=== PATIENT | female | born 1935 | race Caucasian/White ===

== ENCOUNTER 2017-08-15 12:45 | Emergency (ER) | payer MEDICARE ==
[~2017-08-15] VITALS: Ht 160 cm; Wt 73.9 kg
[~2017-08-15 12:45] MED LIST: AMOXICILLIN500 MG PO; ARTHRITIS PAIN650 M3 PO; AUGMENTIN 875-1 EACH PO; BIOTIN1 MG PO; CALCIUM 600 +1 EACH PO; CIPROFLOXACIN250 MG PO; COUMADIN2.5 MG PO; FLAGYL250 MG PO; FLONASE2 SPRAY; FUROSEMIDE20 MG PO; KEFLEX500 MG PO; MAG-OXIDE400 MG PO; NORCO 5-325 TA1 EACH PO; PREMARIN0.625 MG PO; PREVACID30 MG PO; SPIRONOLACTONE50 MG PO; VITAMIN D31000 UNI1 PO; WARFARIN SODIUM5 MG PO; ZYRTEC10 MG PO
[2017-08-15] MEDS ORDERED: MACROBID 100 M100 MG PO (14:04)
== END 2017-08-15 14:18 | disposition home or self-care (01) ==
LOC: ED 12:45
DX: N30.91 Cystitis, unspecified with hematuria (principal); I48.91 Unspecified atrial fibrillation; Z91.041 Radiographic dye allergy status; Z88.2 Allergy status to sulfonamides; Z88.6 Allergy status to analgesic agent; Z88.8 Allergy status to other drugs, medicaments and biological substances; Z91.09 Other allergy status, other than to drugs and biological substances; Z79.899 Other long term (current) drug therapy; Z79.01 Long term (current) use of anticoagulants
CPT/HCPCS: 36415; 81001; 85025; 85610; 87088; 99283

== ENCOUNTER 2017-09-08 17:55 | Emergency (ER) | payer MEDICARE ==
[~2017-09-08] VITALS: Ht 160 cm; Wt 75.8 kg
[~2017-09-08 17:55] MED LIST changes: +MACROBID 100 M100 MG PO
[2017-09-08] MEDS ORDERED: MACROBID 100 M100 MG PO (19:49)
== END 2017-09-08 20:04 | disposition home or self-care (01) ==
LOC: ED 17:55
DX: R31.9 Hematuria, unspecified (principal); R39.89 Other symptoms and signs involving the genitourinary system; Z91.041 Radiographic dye allergy status; Z88.2 Allergy status to sulfonamides; Z88.6 Allergy status to analgesic agent; Z88.8 Allergy status to other drugs, medicaments and biological substances; Z79.01 Long term (current) use of anticoagulants; Z79.899 Other long term (current) drug therapy
CPT/HCPCS: 36415; 81001; 85610; 99283

== ENCOUNTER 2018-07-09 05:05 | Emergency (ER) | payer MEDICARE ==
[~2018-07-09] VITALS: Ht 160 cm; Wt 75.8 kg
--- OUTSIDE RECORDS SUMMARY | ~2018-07-09 | XMS | Encounter Summary ---
Demographics + + + | Address | [address] | | | [place] [address] | + + + | Home Phone | | + + + | Preferred Language | Unknown | + + + | Marital Status | | + + + | Gnosticist Affiliation | 1077 | + + + | Race | Unknown | + + + | Ethnic Group | Unknown | + + + Author + + + | Author | [facility] | + + + | Organization | [facility] | + + + | Address | Unknown | + + + | Phone | Unavailable | + + + Support + + +---------+ + | Name | Relationship | Address | Phone | + + +---------+ + | Anson Johnson | ECON | Unknown | | + + +---------+ + | Monae Barrett | ECON | Unknown | | + + +---------+ + | Karin Mckeon | ECON | Unknown | | + + +---------+ + Care Team Providers + +------+ + | Care Fabric Normalizer Name | Role | Phone | + +------+ + | Tay Sims MD | PCP | | + +------+ + Reason for Visit + + + | Reason | Comments | + + + | Pacemaker Check | remote | + + + Encounter Details +--------+ + + + + | Date | Type | Department | Care Team | Description | +--------+ + + + + | 06/10/ | Documentati | [facility] | Isha Fontanez | Pacemaker Check | | 2019 | on Only | Card[facility] [place] | | (remote) | | | | [address] | | | | | | [facility] [place] | | | | | | [address] | | | | | | [phone] | | | +--------+ + + + + Social History + +-------+ +--------+------+ | Tobacco Use | Types | Packs/Day | Years | Date | | | | | Used | | + +-------+ +--------+------+ | Never Smoker | | | | | + +-------+ +--------+------+ + +---+---+---+ | Smokeless Tobacco: | | | | | Never Used | | | | + +---+---+---+ + + +---------+ + | Alcohol Use | Drinks/We | oz/Week | Comments | | | ek | | | + + +---------+ + | No | | | | + + +---------+ + + + + | Sex Assigned at | Date Recorded | | | | + + + | Not on file | | + + + as of this encounter Progress Notes Isha Fontanez - 06/10/2018 11:45 AM PDTFormatting of this note may be different from jayesh hinson. PACEMAKER REMOTE INTERROGATION REPORT Name: Morena Johnson PCP: TAY SIMS : 1935 Primary cardiology provider: Jaimie Arora Primary electrophysiology provider: Néstor Device dialysis registered nurse: Medtronic Device type: Dual chamber Battery Longevity: 8 yrs RA Pacin.1% RV Pacing: <0.1% INTERROGATION RESULTS: Please see the full interrogation report attached Known history of atrial flutter or atrial fibrillation: Yes Current antithrombotic therapy including: warfarin Mode switches: 4 AT/AF <1 min , no egms. Ventricular high rate episodes: None. Lead function: Lead impedance and threshold value trends have been reviewed and are accepta ble based on most recent evaluation Follow up: The next scheduled interrogation will be in 3 months in the cardiac device clini c. Additional comments: None. IMPRESSION: 1. Normal pacemaker function. 2. No atrial fibrillation/flutter noted. 3. No ventricular high rate episodes were noted. Testing reviewed by: Isha Fontanez [facility] Cardiology in this encounter Plan of Treatment +--------+---------+ + + + | Date | Type | Specialty | Care Team | Description | +--------+---------+ + + + | 01/20/ | Office | Cardiology | Jaimie Arora, | | | 2018 | Visit | | MD Kian Hanna | | | | | | Dr Salcido, | | | | | | [place] [address] | | | | | | [phone] | | | | | | | | +--------+---------+ + + + as of this encounter Visit Diagnoses + + | Diagnosis | + + | Dyspnea on exertion - Primary | + + | Other dyspnea and respiratory abnormality | + +"
--- OUTSIDE RECORDS SUMMARY | ~2018-07-09 | XMS | Clinical Summary ---
Demographics + + + | Address | [address] | | | [place] [address] | + + + | Home Phone | | + + + | Preferred Language | Unknown | + + + | Marital Status | | + + + | Hoahaoism Affiliation | Unknown | + + + | Race | White | + + + | Ethnic Group | Not or | + + + Author + + + | Organization | Unknown | + + + | Address | Unknown | + + + | Phone | Unavailable | + + + Support + + + + + | Name | Relationship | Address | Phone | + + + + + | DAQUAN FALCON | ECON | [place] | | + + + + + Care Team Providers + +------+ + | Care Physical Therapy Teacher Name | Role | Phone | + +------+ + PP | Unavailable | + +------+ + Source Comments ISMAEL is fully live on both [facility] and [facility] InPatient.[facility] Allergies Not on File Current Medications Not on file Active Problems Not on file Social History + +-------+ +--------+------+ | Tobacco Use | Types | Packs/Day | Years | Date | | | | | Used | | + +-------+ +--------+------+ | Never Assessed | | | | | + +-------+ +--------+------+ + + + | Sex Assigned at | Date Recorded | | | | + + + | Not on file | | + + + Plan of Treatment + + + + + | Health Maintenance | Due Date | Last Done | Comments | + + + + + | Pneumococcal (Adult) | | | | | (1 of 2 - PCV13) | 3 | | | + + + + + | Influenza (Flu) | | | | | vaccination (#1) | 8 | | | + + + + + Results Not on filefrom Last 3 Months"
--- OUTSIDE RECORDS SUMMARY | ~2018-07-09 | XMS | Clinical Summary ---
Demographics + + + | Address | [address] | | | [place] [address] | + + + | Home Phone | | + + + | Preferred Language | Unknown | + + + | Marital Status | | + + + | Confucianist Affiliation | Unknown | + + + [...] Team Providers + +------+ + | Care Clinical Data Analyst Name | Role | Phone | + +------+ + PP | Unavailable | + +------+ + Source Comments ISMAEL is fully live on both [facility] Ambulatory and [facility] InPatient.[facility] Allergies Not on File Current [...]
--- OUTSIDE RECORDS SUMMARY | ~2018-07-09 | XMS | Clinical Summary ---
Demographics + + + | Address | [address] | | | [place] [address] | + + + | Home Phone | | + + + | Preferred Language | Unknown | + + + | Marital Status | | + + + | Scientology Affiliation | 1077 | + + + | Race | Unknown | + + + | Ethnic Group | Unknown | + + + Author + + + | Author | [facility] | + + + | Organization | [facility] | + + + | Address [...] + + +---------+ + | Karin Mckeon ECON | Unknown | | + + +---------+ + Care Team Providers + +------+ + | Care Fur Plucker Name | Role | Phone | + +------+ + | Tay Ordonez MD | PP | | + +------+ + Allergies + + + + + + | Active Allergy | Reactions | Severity | Noted | Comments | | | | | Date | | + + + + + + | Aspirin | Other (See Comments) | Medium | 08/15/19 | Blood disorder | | | | | 17 | | + + + + + + | Meperidine | Other (See Comments) | Medium | 08/15/19 | Anemia | | | | | 17 | | + + + + + + | Iodinated Diagnostic | Other (See Comments) | Medium | 08/15/19 | Anemia | | Agents | | | 17 | | + + + + + + | Cephalexin | Other (See Comments) | Medium | 08/15/19 | Does not remember | | | | | 17 | | + + + + + + | Sulfa Antibiotics | Other (See Comments) | Medium | 08/15/19 | Blood disorder | | | | | 17 | | + + + + + + Current Medications + + +-------+---------+------+------+-------+ | Prescription | Sig. | Disp. | Refills | Star | End | Statu | | | | | | t | Date | s | | | | | | Date | | | + + +-------+---------+------+------+-------+ | furosemide (LASIX) | Take 20 mg by mouth | | | | | Activ | | 20 MG tablet | daily. | | | | | e | + + +-------+---------+------+------+-------+ | spironolactone | Take 50 mg by mouth | | | | | Activ | | (ALDACTONE) 50 MG | daily. | | | | | e | | tablet | | | | | | | + + +-------+---------+------+------+-------+ | omeprazole | Take 20 mg by mouth | | | | | Activ | | (PRILOSEC) 20 MG | daily. | | | | | e | | capsule | | | | | | | + + +-------+---------+------+------+-------+ | loratadine | Take 10 mg by mouth | | | | | Activ | | (CLARITIN) 10 MG | as needed. | | | | | e | | tablet | | | | | | | + + +-------+---------+------+------+-------+ | warfarin | Take 5 mg by mouth | | | | | Activ | | (COUMADIN) 5 MG | daily. | | | | | e | | tabletIndications: | | | | | | | | believes the last | | | | | | | | time she had her INR | | | | | | | | checked was in [place] | | | | | | | | 2018 | | | | | | | + + +-------+---------+------+------+-------+ | acetaminophen | Take 1,000 mg by | | | | | Activ | | (TYLENOL) 500 MG | mouth nightly. | | | | | e | | tablet | | | | | | | + + +-------+---------+------+------+-------+ | estrogens, | Take 0.625 mg by | | | | | Activ | | conjugated, | mouth daily. | | | | | e | | (PREMARIN) 0.625 MG | | | | | | | | tablet | | | | | | | + + +-------+---------+------+------+-------+ | | Take 5 mLs by mouth | | | | | Activ | | Promethazine-Phenyle | every 4 (four) hours | | | | | e | | ph-Codeine | as needed. | | | | | | | (PROMETHAZINE | | | | | | | | VC/CODEINE) | | | | | | | | 6.25-5-10 MG/5ML | | | | | | | | SYRP | | | | | | | + + +-------+---------+------+------+-------+ | [place]-3 Fatty | Take 1,250 mg by | | | | | Activ | | Acids (PRO NUTRIENTS | mouth daily. | | | | | e | | OMEGA 3 PO) | | | | | | | + + +-------+---------+------+------+-------+ | Magnesium 250 MG | Take 250 mg by mouth | | | | | Activ | | TABS tablet | daily. | | | | | e | + + +-------+---------+------+------+-------+ | fluticasone | 1 spray by Each Nare | | | | | Activ | | (FLONASE) 50 MCG/ACT | route as needed for | | | | | e | | nasal | Rhinitis. | | | | | | + + +-------+---------+------+------+-------+ | ranitidine | Take 75 mg by mouth | | | | | Activ | | (ZANTAC) 75 MG | daily. | | | | | e | | tablet | | | | | | | + + +-------+---------+------+------+-------+ | Wheat Dextrin | Take by mouth. | | | | | Activ | | (BENEFIBER DRINK MIX | | | | | | e | | PO) | | | | | | | + + +-------+---------+------+------+-------+ | DONEPEZIL HCL PO | Take 1 tablet by | | | | | Activ | | | mouth daily. | | | | | e | + + +-------+---------+------+------+-------+ | Multiple | Take 1 tablet by | | | | | Activ | | Minerals-Vitamins | mouth daily. | | | | | e | | (CALCIUM CITRATE | | | | | | | | PLUS/MAGNESIUM PO) | | | | | | | + + +-------+---------+------+------+-------+ | Probiotic Product | Take 2 capsules by | | | | | Activ | | (PROBIOTIC PO) | mouth daily. | | | | | e | + + +-------+---------+------+------+-------+ | Ascorbic Acid 500 | Take by mouth. | | | | | Activ | | MG CAPS | | | | | | e | + + +-------+---------+------+------+-------+ | famotidine | Take 20 mg by mouth | | | | | Activ | | (PEPCID) 20 MG | 2 (two) times daily | | | | | e | | tablet | as needed. | | | | | | + + +-------+---------+------+------+-------+ Active Problems + + + | Problem | Noted Date | + + + | Essential hypertension | 08/28/2016 | + + + | S/P ablation of atrial fibrillation | 08/14/2016 | + + + + + | Overview: 2006 | + + + + + | S/P cardiac pacemaker procedure | 08/14/2016 | + + + Encounters +--------+ + + + + | Date | Type | Specialty | Care Team | Description | +--------+ + + + + | 06/10/ | Documentati | | Isha Fontanez | Pacemaker Check | | 2019 | on Only | | | (remote) | +--------+ + + + + from Last 3 Months Family History + +------+ + + | Relation | Name | Status | Comments | + +------+ + + | Father | | | MS | | | | (Age | | | | | 70) | | + +------+ + + | Mother | | | | | | | (Age | | | | | 93) | | + +------+ + + Social History + +-------+ +--------+------+ [...] on file | | + + + Last Filed Vital Signs + + + + | Vital Sign | Reading | Time Taken | + + + + | Blood Pressure | 118/76 | 01/14/2018 10:57 AM PDT | + + + + | Pulse | 74 | 01/14/2018 10:57 AM PDT | + + + + | Temperature | 36.4 C (97.6 F) | 08/22/2016 3:26 PM PDT | + + + + | Respiratory Rate | 21 | 08/22/2016 3:26 PM PDT | + + + + | Oxygen Saturation | 97% | 01/14/2018 10:57 AM PDT | + + + + | Inhaled Oxygen | - | - | | Concentration | | | + + + + | Weight | 78.7 kg (173 lb 8 | 01/14/2018 10:57 AM PDT | | | oz) | | + + + + | Height | 162.6 cm (5' 4") | 01/14/2018 10:57 AM PDT | + + + + | Body Mass Index | 29.78 | 01/14/2018 10:57 AM PDT | + + + + Plan of Treatment +--------+---------+ + + + | Date | Type | Specialty | Care Team | Description | +--------+---------+ + + + | 01/20/ | Office | | Jaimie Arora, | | | 2019 | Visit | | MD Kian Hanna | | | | | | Dr Salcido, | | | | | | [place] [address] | | | | | | [phone] | | | | | | | | +--------+---------+ + + + + + + + + | Health Maintenance | Due Date | Last Done | Comments | + + + + + | Vaccine: | | | | | Dtap/Tdap/Td (1 - | 7 | | | | Tdap) | | | | + + + + + | Vaccine: Zoster (1 | | | | | of 2) | 8 | | | + + + + + | DEXA SCAN SCREENING | | | | | | 3 | | | + + + + + | Vaccine: | | | | | Pneumococcal 65+ | 3 | | | | Low/Medium Risk (1 | | | | | of 2 - PCV13) | | | | + + + + + | Vaccine: Influenza | | | | | (Season Ended) | 9 | | | + + + + + Implants + +--------+--------+ +--------+--------+--------+ | Implanted | Type | Area | Manufacture | Device | Expira | Model | | | | | r | | tion | / | | | | | | Identi | Date | Serial | | | | | | fier | | / Lot | + +--------+--------+ +--------+--------+--------+ | Estee Willis | Pacema | Left: | MEDTRONIC - | | 12/19/ | [id number] | | Mri-08/22/2016Implanted: Qty: 1 | ker | Chest | MEDT | | 2018 | | | on 08/22/2016 by Ulysses | | Sheryl | | | | /[id number] | | MD Jaimie | | | | | | [id number] | | | | | | | | / | + +--------+--------+ +--------+--------+--------+ Results Not on filefrom Last 3 Months Insurance + +--------+ +------+-------+ + | Payer | Benefi | Subscriber | Type | Phone | Address | | | t Plan | ID | | | | | | / | | | | | | | Group | | | | | + +--------+ +------+-------+ + | MEDICARE | MEDICA | [id number] | | | [address] | | | RE | | | | [place] [address] | | | IP-OP | | | | | + +--------+ +------+-------+ + | UNITED HEALTHCARE | UNITED | [id number] | | | | | | | | | | | | | HEALTH | | | | | | | CARE - | | | | | | | AARP | | | | | + +--------+ +------+-------+ + + +--------+ +--------+ + + | Guarantor Name | Accoun | Relation to | Date | Phone | Billing Address | | | t Type | Patient | of | | | | | | | | | | + +--------+ +--------+ + + | CHUCK JOHNSON | Person | Self [birth year] Home: | [address] | | | al/Fam | | 1936 | [phone] | [facility] | | | deonna | | | [phone] | [place] [address] | + +--------+ +--------+ + +
--- OUTSIDE RECORDS SUMMARY | ~2018-07-09 | XMS | Clinical Summary ---
Demographics + + + | Address | [address] | | | [place] [address] | + + + | Home Phone | | + + + | Preferred Language | Unknown | + + + | Marital Status | | + + + | Congregational Affiliation | 1077 | + + + | Race | Unknown | + + + | Ethnic Group | Unknown | + + + Author + + + | Author | [facility] | | | and [place] | + + + | Organization | [facility] | | | and [place] | + + + | Address | Unknown | + + + | Phone | Unavailable | + + + Support + + +---------+ + | Name | Relationship | Address | Phone | + + +---------+ + | Anson Johnson | ECON | Unknown | | + + +---------+ + | Monae Barrett | ECON | Unknown | Unavailable | + + +---------+ + Care Team Providers + +------+ + | Care Flatwork Finisher Hand Name | Role | Phone | + +------+ + PP | Unavailable | + +------+ + Allergies Not on File Medications Not on file Active Problems Not [...] on file | | + + + + + + + | Job Start Date | Occupation | Industry | + + + + | Not on file | Not on file | Not on file | + + + + + + + + | Travel History | Travel Start | Travel End | + + + + + + | No recent travel history available. | + + Plan of Treatment + + [...]
--- OUTSIDE RECORDS SUMMARY | ~2018-07-09 | XMS | Encounter Summary ---
Demographics + + + | Address | [address] | | | [place] [address] | + + + | Home Phone | | + + + | Preferred Language | Unknown | + + + | Marital Status | | + + + | Buddhism Affiliation | 1077 | + + + | Race | Unknown | + + + | Ethnic Group | Unknown | + + + Author + + + | Author | [facility] [employer] [facility] | + + + | Organization | [facility] [employer] [facility] | + + + | Address [...] Team Providers + +------+ + | Care Diversity Specialist Name | Role | Phone | + [...] + | 06/10/ | Documentati | ANNAMARIE [facility] | Isha Fontanez | Pacemaker Check | | 2019 | on Only | Cardiology [place] | | (remote) | | | | [address] | | | | | | [facility] [place] | | | | | | [address] | | | | | | [phone] | | | +--------+ + + + [...] Jaimie Arora Primary electrophysiology provider: Néstor Device machine filler servicer: Medtronic Device type: Dual chamber Battery Longevity: [...] were noted. Testing reviewed by: Isha Fontanez [facility] Cardiology in this encounter Plan [...] | | | | | | [place] [address] | | | | | | [phone] | | | | | | | | +--------+---------+ + + + as of this encounter Visit Diagnoses + + | Diagnosis | + + | Dyspnea on exertion - Primary | + + | Other dyspnea and respiratory abnormality | + +"
--- OUTSIDE RECORDS SUMMARY | ~2018-07-09 | XMS | Clinical Summary ---
Demographics + + + | Address | [address] | | | [place] [address] | + + + | Home Phone | | + + + | Preferred Language | Unknown | + + + | Marital Status | | + + + | Hindu Affiliation | 1077 | + + + | Race | Unknown | + + + | Ethnic Group | Unknown | + + + Author + + + | Author | [facility] | + + + | Organization | [facility] | + + + | Address [...] Team Providers + +------+ + | Care Golf Club Maker Name | Role | Phone | + [...] | | | + + +-------+---------+------+------+-------+ | [place]-3 Fatty | Take 1,250 mg by | [...] | | | | | | [place] [address] | | | | | | [phone] | | | | | | | [...] +------+-------+ + | MEDICARE | MEDICA | [id number] | | | [address] | | | RE | | | | [place] [address] | | | IP-OP | | | | | + +--------+ +------+-------+ + | UNITED HEALTHCARE | UNITED | [id number] | | | | | | | [...] | Self [birth year] | Home: | [address] | | | al/Fam | | 1936 | [phone] | [facility] | | | deonna | | | [phone] | [place] [address] | + +--------+ +--------+ + +
--- OUTSIDE RECORDS SUMMARY | ~2018-07-09 | XMS | Clinical Summary ---
Demographics + + + | Address | [address] | | | [place] [address] | + + + | Home Phone | | + + + | Preferred Language | Unknown | + + + | Marital Status | | + + + | Roman Catholic Affiliation | 1077 | + + + | Race | Unknown | + + + | Ethnic Group | Unknown | + + + Author + + + | Author | [facility] | | | and [place] | + + + | Organization | [facility] | | | and [...] Team Providers + +------+ + | Care Flight Teacher Name | Role | Phone | [...]
[2018-07-09] MEDS ORDERED: PYRIDIUM200 MG PO (06:11)
[2018-07-09] MEDS ORDERED: MACROBID 100 M100 MG PO (06:11)
== END 2018-07-09 06:29 | disposition home or self-care (01) ==
LOC: ED 05:05
DX: N39.0 Urinary tract infection, site not specified (principal); I48.91 Unspecified atrial fibrillation; Z95.0 Presence of cardiac pacemaker; Z90.710 Acquired absence of both cervix and uterus; Z90.49 Acquired absence of other specified parts of digestive tract; Z91.041 Radiographic dye allergy status; Z88.2 Allergy status to sulfonamides; Z88.5 Allergy status to narcotic agent; Z91.048 Other nonmedicinal substance allergy status; Z88.1 Allergy status to other antibiotic agents; Z88.8 Allergy status to other drugs, medicaments and biological substances; Z79.01 Long term (current) use of anticoagulants; Z79.899 Other long term (current) drug therapy
CPT/HCPCS: 81001; 87077; 87088; 87186; 99283

== ENCOUNTER 2021-05-01 13:21 | Inpatient (IN) | payer MEDICARE ==
[~2021-05-01] VITALS: Ht 160 cm; Wt 82.5 kg
[~2021-05-01 13:21] MED LIST changes: +ALENDRONATE SOD70 MG PO; +ALLOPURINOL100 MG PO; -ARTHRITIS PAIN650 M3 PO; +PYRIDIUM200 MG PO; +TYLENOL EXTRA500 MG PO
[2021-05-01] MEDS ORDERED: CALCIUM MAGNES1 EAC1 PO (13:48)
[2021-05-01] MEDS ORDERED: VITAMIN C1000 MG PO (13:50)
[2021-05-01] MEDS ORDERED: OMEGA 3 FISH O1 EACH PO (13:50)
[2021-05-01] MEDS ORDERED: CRANBERRY250 MG PO (13:51)
[2021-05-01] MEDS ORDERED: ZINC 15 MG LOZE15 MG PO (13:52)
[2021-05-01] MEDS ORDERED: CITRUCEL500 MG PO (13:54)
--- NOTE | 2021-05-01 17:45 | NUR ---
PATIENT ARRIVED IN THE ROOM #114 ON A STRETCHER WITH HER DAUGHTER AND NURSING BEAN VINER. PATIENT IN COVID ISOLATION. PATIENT UP TO THE BED SIDE COMMODE AND VOIDED AND NOW IN BED ON ROOM AIR WITH O2 SATS=98%. IN THE ROOM NOW TALKING TI THE PATIENT. PATIENT GOT TO THE ROOM AT 1730.
--- NOTE | 2021-05-01 19:31 | NUR ---
RECEIVED REPORT, PT IS AWAKE IN BED, DAUGHTER IS WITH HER IN THE ROOM. CALL LIGHT IS CLOSE.
--- NOTE | 2021-05-01 20:34 | NUR ---
TALKED WITH DR HENAO ABOUT PT'S URINARY BURNING. NEW ORDERS RECEIVED FOR PYRIDIUM BIBP. NO FURTHER ORDERS RECEIVED.
--- NOTE | 2021-05-01 21:04 | EKG ---
[facility] [address] [place], [place] [address] Signed Sinus rhythm with premature ventricular complexes or fusion complexes Incomplete right bundle branch block ST \T\ T wave abnormality, consider inferior ischemia ST \T\ T wave abnormality, consider anterolateral ischemia Abnormal ECG No previous ECGs available Confirmed by SOUMYA HENAO DO ([id number]) on 05/01/2021 9:04:00 PM Electronically Signed By: SOUMYA HENAO DO 05/01/21 2104 PATIENT NAME: EZEKIELCHUCK Electrocardiogram DATE OF : 39 PHYSICIAN: SOUMYA HENAO DO REPORT #: [id number] REPORT IS CONFIDENTIAL AND NOT TO BE RELEASED WITHOUT AUTHORIZATION
--- NOTE | 2021-05-01 22:36 | NUR ---
IN ROOM TO ASSESS PT AND ADMINISTER MEDICATIONS. PT IS ORIENTED TO SELF/DAUGHTER AND SHE ADMITS SHE IS FORGETING ALOT. DAUGHTER AT BEDSIDE AND IS HER CAREGIVER. SHE HAS ASSISTED HER TO THE RESTROOM MULTIPLE TIMES TONIGHT. PT REPORTS BURNING WITH URINATION HAS DECREASED AND DENIED TAKING THE PYRIDIUM AT THIS TIME. PT AGREED TO TAKE THE MELATONIN. LR IS INFUSING PER ORDERS AND PT DENIES FURTHER NEEDS AT THIS TIME. CALL LIGHT IS CLOSE AND DAUGHTER IS IN THE ROOM.
--- NOTE | 2021-05-02 00:19 | NUR ---
PT IS RESTING WITH EYES CLOSED, RR IS EVEN AND UNLABORED. CALL LIGHT IS CLOSE. DAUGHTER IS IN THE ROOM AND IV IS INFUSING FINE.
--- NOTE | 2021-05-02 01:51 | NUR ---
PT IS RESTING WITH EYES CLOSED, RR IS EVEN AND UNLABORED. IV IS INFUSING FINE AND DAUGHTER IS AT BEDSIDE.
--- NOTE | 2021-05-02 02:30 | NUR ---
V/S AND I&O'S TAKEN AND RECORDED. ANSWERED CALL LIGHTS.
--- NOTE | 2021-05-02 04:05 | NUR ---
IN ROOM TO ADMINISTER IV ABX. PT AND DAUGHTER DENY NEEDS AT THIS TIME. CALL LIGHT IS CLOSE.
--- NOTE | 2021-05-02 06:25 | NUR ---
PT IS RESTING WITH EYES CLOSED, RR IS EVEN AND UNLABORED. CALL LIGHT IS CLOSE AND IV IS INFUSING FINE. DAUGHTER IN ROOM.
--- NOTE | 2021-05-02 07:15 | NUR ---
report recieved from night auditor rn, pt awake and alert, on room air, daughter at bedside no needs the moment
--- NOTE | 2021-05-02 12:12 | NUR ---
LUNCH TRAY DELIVERED TO PT GUEST TRAY ORDERED FOR DAUGHTER AT BEDSIDE. SITTING IN BED DENIES ANY NEEDS AT THE MOMENT
--- NOTE | 2021-05-02 12:34 | NUR ---
RN IN ROOM TO SALINE LOCK IV FLUIDS PER PROVIDER ORDER
--- NOTE | 2021-05-02 13:35 | NUR ---
rn in room to answer call light pt requesting fresh water, vital signs done i&os denies any other needs at the moment
--- NOTE | 2021-05-02 15:00 | NUR ---
Spoke with Maryanne from PT and she feels pt will require a walker for safety. Will notify Dr. Corley.
--- NOTE | 2021-05-02 16:09 | NUR ---
RN IN ROOM TO HANG IV ABX PT RESTING IN BED DENIES ANY NEEDS AT THE MOMENT
--- NOTE | 2021-05-02 16:17 | NUR ---
Spoke with pt and her daughter. Pt pleasant, but very poor memory. Daughter gently corrects her. Pt lives with her spouse and daughter spends the day with the daily. Daughter does house hold task, cooking, cleaning, and shopping. Daughter feels pt will need a higher toilet as she is having trouble getting up from toilet. We discussed commode over toilet and pt has been weak and unsteady on her feet at time. PT will assess for walker needs. Daughter and pt deny other concerns. Pt will dc to home when cleared medically.
--- NOTE | 2021-05-02 17:18 | NUR ---
rn in room to answer bed, assisted up to the bathroom, dinner tray delivered, no other needs at the moment
--- NOTE | 2021-05-02 18:40 | NUR ---
RN IN ROOM TO DO i&O, PT ASSISTED BACK TO BED , NO OTHER NEEDS AT THE MOMENT
--- NOTE | 2021-05-02 19:03 | NUR ---
RECEIVED REPORT, PT IS AWAKE IN BED WITH DAUGHTER IN THE ROOM. THEY DENY NEEDS AT THIS TIME. CALL LIGHT IS CLOSE.
--- NOTE | 2021-05-02 20:49 | NUR ---
DAUGHTER CALLED AND PT STATES THAT HER BACK IS ITCHY. PT DENIES OTHER SX, PROVIDED LOTION FOR BACK AT THIS TIME. PT DENIES FURTHER NEEDS. CALL LIGHT IS CLOSE.
--- NOTE | 2021-05-02 22:44 | NUR ---
IN ROOM TO ASSESS PT AND ADMINISTER MEDICATIONS. ADMINISTERED TYLENOL FOR GENERALIZED PAIN, DAUGHTER REPORTS PT TAKES TYLENOL AT BED. ALSO ADMINISTERED MELATONIN. PT DENIES FURTHER NEEDS. CALL LIGHT IS CLOSE AND DAUGHTER IS IN THE ROOM.
--- NOTE | 2021-05-03 00:18 | NUR ---
IV ABX COMPLETE AND LINE FLUSHED. PT'S IV IS NOW SL. PT AND DAUGHTER DENY NEEDS. CALL LIGHT IS CLOSE.
--- NOTE | 2021-05-03 01:54 | NUR ---
PT IS RESTING WITH EYES CLOSED, RR IS EVEN AND UNLABORED. CALL LIGHT IS CLOSE ABD DAUGHTER AT BEDSIDE.
--- NOTE | 2021-05-03 05:18 | NUR ---
IN ROOM TO ADMINISTER IV ABX. IV FLUSHES FINE AND IS NOW INFUSING. PT DENIES PAIN AND SOB AT THIS TIME. VS WNL AND I&O'S ENTERED. PT DENIES NEEDS AT THIS TIME. DAUGHTER IS IN ROOM AND CALL LIGHT IS CLOSE.
--- NOTE | 2021-05-03 07:15 | NUR ---
report recieved from night custodian RN pt resting in bed, daughter at bedside call light within reach, no needs at the moment
--- NOTE | 2021-05-03 09:00 | NUR ---
RN IN ROOM TO DO MORNING ASSESSMENT, PT AWAKE AND ALERT, DENIES ANY PAIN, IV FLUSHED , DAUGHTER AT BEDSIDE, VOIDING QS, NO OTHER NEEDS THE MOMENT
--- NOTE | 2021-05-03 10:00 | NUR ---
Received RX for Walker from Dr. Corley. Faxed FAce sheet, H&P, Progress notes, RX to Jannette at [facility] per pts choice.
--- NOTE | 2021-05-03 10:20 | NUR ---
RN IN ROOM TO HANG IV ABX, DENIES ANY NEEDS A THE MOMENT
--- NOTE | 2021-05-03 11:21 | NUR ---
Faxed FAce sheet, REferral for OP therapy, H&P, Progress notes, PT/OT notes to [facility].
--- NOTE | 2021-05-03 11:30 | NUR ---
Updated pt and daughter walker has been ordered and will be delivered today or tomorrow by Mary. Orders have been faxed to [facility]. Daughter denies further needs or questions.
--- NOTE | 2021-05-03 12:15 | NUR ---
RN IN ROOM TO ROUND DELIVER LUNCH TRAY, DENIES ANY OTHER NEEDS AT THE MOMENT, DAUGHTER AT BEDSIDE HELPING SET UP
[2021-05-03] MEDS ORDERED: AUGMENTIN 875-1 EACH PO (13:39)
--- NOTE | 2021-05-03 14:21 | NUR ---
MED REC COMPLETE
== END 2021-05-03 15:00 | disposition home or self-care (01) | DRG 871 ==
LOC: ED 13:21 → MS 15:47
PROVIDERS: ADMIT Student in an Organized Health Care Education/Training Program; ATTEND Student in an Organized Health Care Education/Training Program
PROC: 8E0ZXY6 Isolation (ICD-10-PCS; principal; 2021-05-01)
DX: A41.9 Sepsis, unspecified organism (principal); U07.1 COVID-19; N39.0 Urinary tract infection, site not specified; E87.2 Acidosis; R65.20 Severe sepsis without septic shock; I11.0 Hypertensive heart disease with heart failure; I50.9 Heart failure, unspecified; I48.91 Unspecified atrial fibrillation; G30.9 Alzheimer's disease, unspecified; F02.80 Dementia in other diseases classified elsewhere, unspecified severity, without behavioral disturbance, psychotic disturbance, mood disturbance, and anxiety; Z88.2 Allergy status to sulfonamides; Z91.041 Radiographic dye allergy status; Z88.6 Allergy status to analgesic agent; Z88.8 Allergy status to other drugs, medicaments and biological substances; Z79.01 Long term (current) use of anticoagulants; Z79.899 Other long term (current) drug therapy; Z87.19 Personal history of other diseases of the digestive system; Z95.0 Presence of cardiac pacemaker; Z90.710 Acquired absence of both cervix and uterus; Z98.51 Tubal ligation status; Z90.89 Acquired absence of other organs; Z98.890 Other specified postprocedural states
CPT/HCPCS: 36415; 71045; 80048; 80053; 81001; 83605; 83735; 83880; 84484; 85025; 85610; 87088; 93005; 93010; 97110; 97116; 97162; 97165; A9270; C9803; J0295; J7030; J7121; U0003

== ENCOUNTER 2025-01-09 02:09 | Emergency (ER) | payer MEDICARE ==
[~2025-01-09] VITALS: Ht 160 cm; Wt 79.6 kg
[~2025-01-09 02:09] MED LIST changes: +CALCIUM MAGNES1 EAC1 PO; +CITRUCEL500 MG PO; +CRANBERRY250 MG PO; +ESTRADIOL42.5 GM PV; -MAG-OXIDE400 MG PO; +MAGNESIUM 300300 MG PO; +OMEGA 3 FISH O1 EACH PO; +PENICILLIN V P500 MG PO; +SPIRONOLACTONE25 MG PO; +TAMSULOSIN HCL0.4 MG PO; +TURMERIC500 M2 PO; +VITAMIN C500 M1 PO; +ZINC 15 MG LOZE15 MG PO
[2025-01-09] MEDS ORDERED: FUROSEMIDE 20 MG/2 ML VIAL IV ONE (02:30)
[2025-01-09] MEDS ORDERED: ZEASORB AF71 GM TOP (02:34)
[2025-01-09] MEDS ORDERED: TRAMADOL HCL50 MG PO (03:14)
[2025-01-09] MEDS ORDERED: TRAMADOL HCL 50 MG HOME.PACK PO ONE ×2 (03:15→03:30)
[2025-01-09 03:36] VITALS: BP 137/61
== END 2025-01-09 03:37 | disposition home or self-care (01) ==
LOC: ED 02:09
DX: S83.91XA Sprain of unspecified site of right knee, initial encounter (principal); S73.102A Unspecified sprain of left hip, initial encounter; W19.XXXA Unspecified fall, initial encounter; Z79.01 Long term (current) use of anticoagulants; Z79.899 Other long term (current) drug therapy; Z91.041 Radiographic dye allergy status; Z88.2 Allergy status to sulfonamides; Z88.5 Allergy status to narcotic agent; Z88.8 Allergy status to other drugs, medicaments and biological substances
CPT/HCPCS: 73502; 73560; 99283; A9270